=== PATIENT | female | born 1940 | race Caucasian/White ===

== ENCOUNTER 2023-03-12 10:47 | Outpatient (CLI) | payer MEDICARE | END 2023-03-12 10:48 | disposition home or self-care (01) | LOC: CSHRAD 10:47 | PROVIDERS: ATTEND Psychiatry & Neurology Neurology | DX: G20 Parkinson's disease (principal); M47.816 Spondylosis without myelopathy or radiculopathy, lumbar region | CPT/HCPCS: 72100 ==